=== PATIENT | female | born 1945 | race Caucasian/White ===

== ENCOUNTER 2022-02-17 00:33 | Inpatient (IN) | payer MEDICARE, BC ==
[2022-02-17] MEDS ORDERED: Morphine 4 MG/ML VIAL ONE (01:26)
[2022-02-17] MEDS ORDERED: Promethazine HCl 25 MG/ML VIAL ONE (01:26)
[2022-02-17 01:35] LABS: #Eosinphils 0.2 10x3/uL (0.0-0.5); #Monocytes 0.9 10x3/uL (0.0-1.1); %Basophils 0.3 % (0.0-2.0); %Eosinophils 1.2 % (0.0-6.0); %Lymphocytes 13.5 % (18.0-47.0); %Monocytes 6.1 % (0.0-10.0); %Neutrophils 78.6 % (40.0-75.0); Hemoglobin 9.7 g/dL (12.0-15.5); Mean Corpuscular HGB CONC 32.1 g/dL (32.0-36.0); Mean Corpuscular Hemoglobin 26.4 pg (27.0-33.0); Mean Corpuscular Volume 82.3 fl (81.6-98.3); Mean Platelet Volume 9.1 fl (7.4-10.4); Platelet Count 281 10x3/uL (150-450); RBC Distribution Width 15.6 % (11.5-14.5); Red Blood Cell (RBC) Count 3.67 10x6/uL (3.90-5.03); White Blood Cell (WBC) Count 15.2 10x3/uL (3.5-10.5)
[2022-02-17 01:48] LABS: ALT (SGPT) 18 U/L (8-55); AST (SGOT) 14 U/L (5-34); Alkaline Phosphatase 77 U/L (40-110); Anion Gap 13 mmol/L (10-20); BUN (Urea Nitrogen) 17 mg/dL (9.8-20.1); Bilirubin, Total 0.4 mg/dL (0.2-1.2); Calc. Creatinine Clearance 0 mL/min (70-130); Calcium 9.9 mg/dL (7.8-10.44); Carbon Dioxide 28 mmol/L (23-31); Estimated GFR 75; Globulin 2.7 g/dL (2.4-3.5); Glucose 115 mg/dL (83-110); Lipase 36 U/L (8-78); Potassium 3.2 mmol/L (3.5-5.1); Protein, Total 6.7 g/dL (5.8-8.1)
[2022-02-17 01:54] LABS: Chloride 100 mmol/L (98-107); Sodium 138 mmol/L (136-145)
[2022-02-17] MEDS ORDERED: Pantoprazole 40 MG VIAL ONE (04:43)
[2022-02-17] MEDS ORDERED: cefTRIAXone\\ROCEPHIN 2 GM VIAL ONE (04:48)
[2022-02-17] MEDS ORDERED: Ondansetron PF 4 MG/2 ML Vial IVP PRN (05:02)
[2022-02-17] MEDS ORDERED: Potassium Chloride 20 MEQ in Premix Bag 1 BAG IVPB SCH (05:15)
[2022-02-17] MEDS ORDERED: Morphine 2 MG/ML VIAL SLOW IVP PRN (05:20)
[2022-02-17] MEDS ORDERED: metroNIDAZOLE 500 MG/100 ML BAG ONE (05:49)
[2022-02-17 08:35] VITALS: BMI 44.1
[2022-02-17] MEDS: Lactated Ringer's 1,000 ML IV SCH ×2 (08:36→15:05)
[2022-02-17] MEDS: Cefepime 1 GM in Sodium Chloride 0.9% 100 ML IVPB SCH ×2 (08:44→22:05)
[2022-02-17] MEDS ORDERED: Iopamidol 300 61% 100 ML VIAL FS ONE (10:00)
[2022-02-17] MEDS ORDERED: Moisturizing Cream (Eucerin) 113 GM JAR TOP PRN (11:19)
[2022-02-17] MEDS ORDERED: Calcium Carbonate 500 MG ChewTAB PO PRN (11:19)
[2022-02-17] MEDS ORDERED: Acetaminophen 650 MG Suppository PR PRN (11:19)
[2022-02-17] MEDS ORDERED: Cepastat Lozenges 1 LOZ PO PRN (11:19)
[2022-02-17] MEDS ORDERED: Artificial Tear Sol 15 ML BOT EA EYE PRN (11:19)
[2022-02-17] MEDS ORDERED: Sodium Chloride 0.65% Nasal 44 ML BOT EA NARE PRN (11:19)
[2022-02-17] MEDS ORDERED: Benzonatate 100 MG CAP PO PRN (11:19)
[2022-02-17] MEDS ORDERED: diphenhydrAMINE 25 MG CAP PO PRN (11:19)
[2022-02-17 11:48] LABS: #Eosinphils 0.2 10x3/uL (0.0-0.5); #Neutrophils 9.5 10x3/uL (1.5-8.4); %Basophils 0.2 % (0.0-2.0); %Eosinophils 1.8 % (0.0-6.0); %Lymphocytes 11.5 % (18.0-47.0); %Monocytes 8.2 % (0.0-10.0); %Neutrophils 78.1 % (40.0-75.0); Hemoglobin 8.4 g/dL (12.0-15.5); Mean Corpuscular HGB CONC 31.8 g/dL (32.0-36.0); Mean Corpuscular Volume 81.7 fl (81.6-98.3); Mean Platelet Volume 9.1 fl (7.4-10.4); Platelet Count 255 10x3/uL (150-450); RBC Distribution Width 15.9 % (11.5-14.5); Red Blood Cell (RBC) Count 3.23 10x6/uL (3.90-5.03); White Blood Cell (WBC) Count 12.2 10x3/uL (3.5-10.5)
[2022-02-17] MEDS: metroNIDAZOLE 500 MG in Premix Bag 1 BAG IVPB SCH ×2 (12:54→22:05)
[2022-02-17] MEDS: Pantoprazole 40 MG VIAL IVP SCH (15:04)
[2022-02-17 16:08] LABS: Bilirubin Neg (Negative); Blood, Urine Negative (Negative); Clarity Clear (Clear); Glucose, Urine (Dipstick) Normal (Negative); Ketone, Urine Negative (Negative); Leukocyte 25 (Negative); Nitrite Positive (Negative); Protein, Urine (Dipstick) 30 mg/dl (Neg-Trace); Specific Gravity, Urine 1.015 (1.005-1.030); Urobilinogen Normal mg/dL (Less than 2)
[2022-02-17 16:16] LABS: RBC/HPF None Seen HPF (0-3)
[2022-02-17 16:17] LABS: Bacteria/HPF 2+ HPF (None Seen); Squamous Epithelial 0-3 HPF (0-3)
[2022-02-17] MEDS ORDERED: Amlodipine 5 MG TAB PO SCH (21:00)
[2022-02-17] MEDS: Aspirin 81 mg Enteric Coated Tablet PO SCH (21:46)
[2022-02-17] MEDS: Flecainide 50 MG TAB PO SCH (21:48)
[2022-02-17] MEDS: Acetaminophen 500 MG TAB PO PRN (22:00)
[2022-02-18] MEDS: Pantoprazole 40 MG VIAL IVP SCH ×2 (02:53→15:11)
[2022-02-18] MEDS: Labetalol HCl 100 MG/20 ML VIAL SLOW IVP PRN ×2 (02:59→16:38)
[2022-02-18] MEDS: metroNIDAZOLE 500 MG in Premix Bag 1 BAG IVPB SCH ×3 (04:21→21:53)
[2022-02-18 04:56] LABS: Anion Gap 11 mmol/L (10-20); BUN (Urea Nitrogen) 10 mg/dL (9.8-20.1); Calc. Creatinine Clearance 106 mL/min (70-130); Calcium 9.3 mg/dL (7.8-10.44); Carbon Dioxide 27 mmol/L (23-31); Chloride 106 mmol/L (98-107); Estimated GFR 86; Glucose 116 mg/dL (83-110); Potassium 3.2 mmol/L (3.5-5.1); Sodium 141 mmol/L (136-145)
[2022-02-18 05:12] LABS: #Eosinphils 0.2 10x3/uL (0.0-0.5); #Monocytes 0.9 10x3/uL (0.0-1.1); #Neutrophils 8.2 10x3/uL (1.5-8.4); %Basophils 0.4 % (0.0-2.0); %Eosinophils 2.1 % (0.0-6.0); %Lymphocytes 15.7 % (18.0-47.0); %Monocytes 8.3 % (0.0-10.0); %Neutrophils 73.1 % (40.0-75.0); Hemoglobin 8.8 g/dL (12.0-15.5); Mean Corpuscular HGB CONC 30.9 g/dL (32.0-36.0); Mean Corpuscular Hemoglobin 25.8 pg (27.0-33.0); Mean Corpuscular Volume 83.6 fl (81.6-98.3); Mean Platelet Volume 9.2 fl (7.4-10.4); Platelet Count 259 10x3/uL (150-450); RBC Distribution Width 15.9 % (11.5-14.5); Red Blood Cell (RBC) Count 3.41 10x6/uL (3.90-5.03); White Blood Cell (WBC) Count 11.2 10x3/uL (3.5-10.5)
[2022-02-18 05:48] LABS: SARS-CoV-2 NAA Rapid Test Not Detected (NotDetected)
[2022-02-18] MEDS: Flecainide 50 MG TAB PO SCH ×2 (08:38→21:56)
[2022-02-18] MEDS: Cefepime 1 GM in Sodium Chloride 0.9% 100 ML IVPB SCH ×2 (08:38→21:58)
[2022-02-18] MEDS: Lactated Ringer's 1,000 ML IV SCH (08:38)
[2022-02-18] MEDS ORDERED: Amlodipine 5 MG TAB PO SCH ×2 (14:00→21:00)
[2022-02-18] MEDS: Acetaminophen 500 MG TAB PO PRN ×2 (16:46→23:18)
[2022-02-18] MEDS: Aspirin 81 mg Enteric Coated Tablet PO SCH (21:52)
[2022-02-19] MEDS ORDERED: Metoprolol Tartrate 25 MG TAB PO SCH (02:15)
[2022-02-19] MEDS: Pantoprazole 40 MG VIAL IVP SCH (02:54)
[2022-02-19] MEDS: metroNIDAZOLE 500 MG in Premix Bag 1 BAG IVPB SCH (05:36)
[2022-02-19 06:55] LABS: #Basophils 0.1 10x3/uL (0.0-0.2); #Eosinphils 0.3 10x3/uL (0.0-0.5); #Monocytes 0.9 10x3/uL (0.0-1.1); #Neutrophils 6.4 10x3/uL (1.5-8.4); %Basophils 0.5 % (0.0-2.0); %Eosinophils 3.1 % (0.0-6.0); %Lymphocytes 17.7 % (18.0-47.0); %Monocytes 9.2 % (0.0-10.0); %Neutrophils 69.2 % (40.0-75.0); Hemoglobin 8.3 g/dL (12.0-15.5); Mean Corpuscular HGB CONC 31.1 g/dL (32.0-36.0); Mean Corpuscular Hemoglobin 25.9 pg (27.0-33.0); Mean Corpuscular Volume 83.4 fl (81.6-98.3); Mean Platelet Volume 9.4 fl (7.4-10.4); Platelet Count 266 10x3/uL (150-450); RBC Distribution Width 15.9 % (11.5-14.5); White Blood Cell (WBC) Count 9.3 10x3/uL (3.5-10.5)
[2022-02-19] MEDS ORDERED: Cholecalciferol 1,000 UNITS (25 MCG) TAB PO SCH (09:00)
[2022-02-19] MEDS ORDERED: Valsartan 80 MG TAB PO SCH ×2 (09:00→21:00)
[2022-02-19] MEDS: Cefepime 1 GM in Sodium Chloride 0.9% 100 ML IVPB SCH (11:06)
[2022-02-19] MEDS: Flecainide 50 MG TAB PO SCH (11:06)
[2022-02-19 11:59] VITALS: BP 132/76; TEMP 98.8
[2022-02-19] MEDS ORDERED: Amlodipine 5 MG TAB PO SCH (21:00)
[2022-02-19] MEDS ORDERED: Amlodipine 10 MG TAB PO SCH (21:00)
== END 2022-02-19 15:34 | disposition home or self-care (01) | DRG 394 ==
LOC: SUATTDRO 00:33 → CSHERS 00:33 → CSHTELE 05:02 → INTOOBSV 05:02 → CSHTELE 08:24 → UNDOADMIN 08:24 → OBSVTOIN 02-19 10:57
PROVIDERS: ADMIT Family Medicine; ATTEND Family Medicine
DX: K91.89 Other postprocedural complications and disorders of digestive system (principal); K56.7 Ileus, unspecified; Z68.41 Body mass index [BMI] 40.0-44.9, adult; K29.80 Duodenitis without bleeding; I48.91 Unspecified atrial fibrillation; E87.6 Hypokalemia; E66.01 Morbid (severe) obesity due to excess calories; I10 Essential (primary) hypertension; I25.10 Atherosclerotic heart disease of native coronary artery without angina pectoris; K21.9 Gastro-esophageal reflux disease without esophagitis; I48.0 Paroxysmal atrial fibrillation; M19.90 Unspecified osteoarthritis, unspecified site; Z96.653 Presence of artificial knee joint, bilateral; D72.829 Elevated white blood cell count, unspecified; I16.0 Hypertensive urgency; D50.9 Iron deficiency anemia, unspecified; K43.9 Ventral hernia without obstruction or gangrene; E78.00 Pure hypercholesterolemia, unspecified; Z96.1 Presence of intraocular lens; Z98.42 Cataract extraction status, left eye; Z98.41 Cataract extraction status, right eye; Z88.0 Allergy status to penicillin; Z79.82 Long term (current) use of aspirin; Z79.01 Long term (current) use of anticoagulants; Z98.890 Other specified postprocedural states; Z87.891 Personal history of nicotine dependence; Z95.5 Presence of coronary angioplasty implant and graft; Z90.49 Acquired absence of other specified parts of digestive tract; Z82.49 Family history of ischemic heart disease and other diseases of the circulatory system; Z86.73 Personal history of transient ischemic attack (TIA), and cerebral infarction without residual deficits; Z79.899 Other long term (current) drug therapy; Z20.822 Contact with and (suspected) exposure to COVID-19
CPT/HCPCS: 36415; 36416; 71045; 74177; 80048; 80053; 81001; 83605; 83690; 85025; 94760; 96365; 96367; 96375; 96376; C9113; G0378; J0692; J0696; J2270; J2550; J3480; J3490; J7120; Q9967; U0002

== ENCOUNTER 2024-02-22 06:54 | Day surgery (SDC) | payer MEDICARE ==
[2024-02-22 08:12] VITALS: BP 158/68; TEMP 98.7
[2024-02-22] MEDS ORDERED: Lidocaine Viscous Sol 2% 15 ml UD Cup ONE (08:17)
[2024-02-22] MEDS ORDERED: Lidocaine 2% PF 5 ML VIAL ONE (08:21)
[2024-02-22] MEDS ORDERED: ePHEDrine Sulfate 50 MG/10 ML VIAL ONE (08:21)
[2024-02-22] MEDS ORDERED: PROPOFOL 60 ML ONE (08:21)
[2024-02-22] MEDS ORDERED: PROPOFOL 200 MG/20 ML VIAL ONE (09:00)
[2024-02-22] MEDS ORDERED: Lidocaine 1% (PF) 30 ML VIAL ONE (09:00)
== END 2024-02-22 09:19 | disposition home or self-care (01) ==
LOC: CSHSDC 06:54
PROVIDERS: ATTEND Internal Medicine Cardiovascular Disease
PROC: B246ZZ4 Ultrasonography of Right and Left Heart, Transesophageal (ICD-10-PCS; principal; 2024-02-22)
DX: I48.0 Paroxysmal atrial fibrillation (principal); I49.5 Sick sinus syndrome; I25.10 Atherosclerotic heart disease of native coronary artery without angina pectoris; E78.5 Hyperlipidemia, unspecified; I11.9 Hypertensive heart disease without heart failure; I10 Essential (primary) hypertension; Z79.899 Other long term (current) drug therapy; Z95.818 Presence of other cardiac implants and grafts; Z86.73 Personal history of transient ischemic attack (TIA), and cerebral infarction without residual deficits; Z79.01 Long term (current) use of anticoagulants
CPT/HCPCS: 93312; J2001 ×2; J2704